=== PATIENT | female | born 1965 ===

== ENCOUNTER 2018-02-21 12:28 | Outpatient (CLI) | payer OTHER ==
[~2018-02-21] VITALS: Ht 157.5 cm; Wt 55.8 kg
== END 2018-02-21 12:40 | disposition home or self-care (01) ==
LOC: OFIC 805 12:28
DX: J32.8 Other chronic sinusitis (principal); R09.81 Nasal congestion; K21.9 Gastro-esophageal reflux disease without esophagitis